=== PATIENT | female | born 1995 | race Caucasian/White ===

== ENCOUNTER 2024-05-14 12:40 | Outpatient (CLI) | payer OTHER, SELFPAY ==
--- NOTE | 2024-05-14 13:00 | CRLHL7_ITS ---
For Patients: As a result of the Century Cures Act, medical imaging exams and procedure reports are released immediately into your electronic medical record. You may view this report before your referring provider. If you have questions, please contact your health care provider. INDICATION: 2nd trimester anatomical survey. TECHNIQUE: Ultrasound OB pelvis transabdominal. Real-time robertson-scale imaging of the fetus was performed as well as color Doppler and spectral Doppler analysis of the umbilical artery. COMPARISON: None FINDINGS: Intrauterine gestation: Single. heart rate: Regular, 152 bpm. presentation: Multiple positions seen throughout the exam Placenta: Posterior, without previa. Cervix: 3.8 cm and closed Amniotic fluid: 4.3 cm deepest pocket. Biometry: Biparietal diameter: 4.6 cm, 19 weeks 6 days. Head circumference: 18.6 cm, 20 weeks 6 days. Abdominal circumference: 17 cm, 22 weeks 0 days. Femoral length: 3.4 cm, 20 weeks 5 days. EFW: 413 gm, 88 %. Gestational age by ultrasound: 20 weeks 6 days KRISTIN by ultrasound: 09/25/2024 Anatomical Survey: Wilkes views including four-chamber heart, LVOT, RVOT, 3VV, and 3VTV: Visualized. Possible ventricular septal defect Stomach: Visualized. Kidneys: The left kidney is not visualized. Bladder: Visualized. Spine: Visualized. Sacrum: Visualized. 4 extremities: Visualized. Cord insertion: Central 3V cord: Absent right umbilical artery Face: Visualized. Nose: Visualized. Lips: Visualized. Cerebellum: Visualized, measuring 2.1 cm, compatible with 20 weeks 6 days. Cisterna Magna: Visualized measuring 4.6 mm. Lateral ventricles: Visualized measuring 6 mm. IMPRESSION: 1. Single live intrauterine measuring 20 weeks 6 days by ultrasound with KRISTIN of 09/25/2024. Estimated weight is 413 grams in the 88th percentile 2. 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 Recommend referral to tertiary care high-risk OB center for further evaluation and management. Dictated by Loraine Pruitt MD @ 05/15/2024 3:45:06 PM (Electronically Signed)
== END 2024-05-14 12:41 | disposition home or self-care (01) ==
LOC: US 12:41
PROVIDERS: Visit Provider Advanced Practice Midwife
DX: Z34.92 Encounter for supervision of normal pregnancy, unspecified, second trimester (principal); Z3A.20 20 weeks gestation of pregnancy
CPT/HCPCS: 76805

== ENCOUNTER 2024-07-10 09:08 | Outpatient (CLI) | payer OTHER, SELFPAY | END 2024-07-10 09:09 | disposition home or self-care (01) | LOC: NFLDREF 07-12 19:02 | PROVIDERS: Visit Provider Advanced Practice Midwife | DX: Z34.93 Encounter for supervision of normal pregnancy, unspecified, third trimester (principal); E03.9 Hypothyroidism, unspecified; Z3A.28 28 weeks gestation of pregnancy | CPT/HCPCS: 84443; 86592; 86787; 86850 ==

== ENCOUNTER 2024-07-31 10:35 | Outpatient (CLI) | payer OTHER, SELFPAY | END 2024-07-31 10:36 | disposition home or self-care (01) | PROVIDERS: Visit Provider Advanced Practice Midwife | DX: Z34.83 Encounter for supervision of other normal pregnancy, third trimester (principal); Z67.11 Type A blood, Rh negative; Z3A.31 31 weeks gestation of pregnancy | CPT/HCPCS: J2791 ==

== ENCOUNTER 2024-08-12 13:09 | Outpatient (CLI) | payer OTHER, SELFPAY | END 2024-08-12 13:10 | disposition home or self-care (01) | LOC: US 13:09 | PROVIDERS: Visit Provider Advanced Practice Midwife | DX: Z34.93 Encounter for supervision of normal pregnancy, unspecified, third trimester (principal); Z3A.33 33 weeks gestation of pregnancy | CPT/HCPCS: 76811; 84443 ==

== ENCOUNTER 2024-09-04 12:55 | Outpatient (CLI) | payer OTHER, SELFPAY ==
--- NOTE | 2024-09-04 13:00 | CRLHL7_ITS ---
For Patients: As a result of the Century Cures Act, medical imaging exams and procedure reports are released immediately into your electronic medical record. You may view this report before your referring provider. If you have questions, please contact your health care provider. OBSTETRICAL ULTRASOUND ??? ANATOMY SURVEY INDICATION: 2VC, agenesis of left kidney. KRISTIN by LMP or US: 09/28/2024 GESTATIONAL AGE: 36 weeks 2 days TECHNIQUE: Real-time robertson-scale imaging of the fetus was performed transabdominal. FINDINGS: position: Vertex Cervix: Not Visualized Technique: Transabdominal Amniotic fluid: 3.8 cm SDP (N: greater than 2 x 1 cm) BIOPHYSICAL PROFILE Total score: /8. Gross body movements: 2. tone: 2. Respiratory activity: 2. PLACENTA: Technique: Transabdominal. PLACENTA POSITION: Posterior. DOPPLER: heart rate: `120/135 bpm. BIOMETRY: BPD: 8.5 cm. 34 w, 1 d, 7 percent. HC: 31.5 cm. 35 w, 3 d, 6 percent. AC: 34.0 cm. 38 w, 0 d, 91 percent. FL: 7.0 cm. 35 w, 5 d, 24 percent. FL/AC ratio: 20.42 percent. HC/AC ratio: 0.93. EFW: 3000 g. Weight: 6 lbs, 10 oz. age by this US: 35 w, 6 d. KRISTIN by this US: 10/03/2024. Percentile by KRISTIN: 57 percent. IMPRESSION: 1) Sonographic gestational age 35 weeks 6 days and sonographic due date of 10/03/2024. Sonographic age is 5 days behind clinical age. 2) Estimated weight 57th percentile. Abdominal circumference 91st percentile. 3) Normal biophysical profile 12/11. FÉLIX FONSECA M.D. Diagnostic Radiologist [email or web address] DW/Dictated by: Félix Fonseca MD @ 09/05/2024 5:32:00 PM (Electronically Signed)
== END 2024-09-04 12:56 | disposition home or self-care (01) ==
LOC: US 12:55
PROVIDERS: Visit Provider Midwife
DX: O26.893 Other specified pregnancy related conditions, third trimester (principal); Q27.0 Congenital absence and hypoplasia of umbilical artery; Z3A.36 36 weeks gestation of pregnancy
CPT/HCPCS: 76816; 76819; 87081; 87653

== ENCOUNTER 2024-09-11 13:52 | Outpatient (CLI) | payer OTHER, SELFPAY ==
--- NOTE | 2024-09-11 14:00 | CRLHL7_ITS ---
For Patients: As a result of the Cures Act, medical imaging exams and procedure reports are released immediately into your electronic medical record. You may view this report before your referring provider. If you have questions, please contact your health care provider. OBSTETRICAL ULTRASOUND ??? BIOPHYSICAL PROFILE, 09/11/2024 INDICATION: Two-vessel cord, agenesis of left kidney. CLINICAL HISTORY: KRISTIN by LMP: 09/28/2024 Gestational Age: 37 weeks 4 days COMPARISON: 09/04/2024, 08/12/2024, 07/21/2024, 07/08/2024. TECHNIQUE: Real-time robertson-scale transabdominal imaging of the fetus was performed. FINDINGS: Fetus: Single Cervix: Not visualized positioning: Vertex Amniotic Fluid: 4.8 cm SDP BIOPHYSICAL PROFILE: Gross body movements: 2 tone: 2 Respiratory activity: 2 Amniotic fluid SDP: 2 Total score: 8 Placenta technique: Transabdominal Placenta position: Posterior heart rate: 144 bpm IMPRESSION: Normal biophysical profile score of 8/8. FÉLIX FONSECA M.D. Diagnostic Radiologist [email or web address] Transcribed: 3:[address]/Dictated by: Fléix Fonseca MD @ 09/11/2024 2:30:00 PM (Electronically Signed)
== END 2024-09-11 13:53 | disposition home or self-care (01) ==
LOC: US 13:52
PROVIDERS: Visit Provider Midwife
DX: O09.813 Supervision of pregnancy resulting from assisted reproductive technology, third trimester (principal); O35.9XX0 Maternal care for (suspected) fetal abnormality and damage, unspecified, not applicable or unspecified; Z3A.37 37 weeks gestation of pregnancy
CPT/HCPCS: 76819

== ENCOUNTER 2024-09-17 03:15 | Inpatient (IN) | payer OTHER, SELFPAY ==
[2024-09-17] VITALS (7 sets, daily range): BP systolic 89–111; BP diastolic 58–70; PULSE 74–81; RESP 16–20; TEMP 36.6–36.8; O2SAT 97–98
--- NOTE | 2024-09-17 03:50 | P.LDBA_ITS ---
Subjective History of Present Illness Date Seen: 09/17/24 Narrative: Patient is being admitted to Labor and Delivery for spontaneous labor. She is a 29 year old at 38.3 weeks gestation. Her full history and physical was dictated by Andrew Michaels CNM on 09/11/24. Please see this for details. Specific Issues/Plans ? : Verna? Transfer at 16 weeks' gestation from [facility] and [place], [place]? H&P:? 09/11/24 by Andrew Michaels CNM? #Single Umbilical Artery 20-week level II detailed US with MFM with ECHO echo recommended, pt declines Growth with MFM at 28 and 34 weeks recommended, pt would like to do with [facility]. MFM appointment on 07/21/24 in [place]: EFW 73%. planning 34 wk growth with MFM in [facility], ordered Weekly testing (BPP per MFM) starting at 36 weeks?can be at [facility]--form completed. Recommend delivery: elective delivery considered at >39 0/7weeks. Will likely decline.? # Unilateral renal agenesis Genetics: Completed counseling 05/21/2024 Pts brother was born with unilateral renal agenesis Recommended US and genetic consult. # Possible VSD echo initially recommended with peds cardiology. Pt elected not to proceed as it was not seen on Level II or follow-up US. # Rh negative? Rhogam recommended at 28 weeks. Will await results before administering RH detected by [place]; pt notified Rhogam needed Rhogam given 07/31 Rhogam recommended pp: #? Hx of forceps delivery with first child unmedicated vaginal deliveries with 2nd and 3rd? #? established through IUI with sperm donor? #Hypothyroidism on levothyroxine 100mcg at tx TSH at NOB 2.58 2nd tri- 2.28 3rd tri- 1.54 # Varicella non-immune. Recommended vaccinating PP. #GBS Positive: Please discuss next visit OB Labs: ? Blood type: A neg, antibody screen negative. ? Hgb: 12.2 ? Platelets: 253 ? Rubella: Immune ? Varicella: not tested RPR: non-reactive ? HBsAg: non-reactive ? Hep C: negative HIV: negative ? UC:negative GC/Chlamydia: declined ? Pap (09/13/22): NIL, no HPV result ? Genetic screening: declined IMAGING: ? 1st trimester: Limited viability ultrasound, gest sac 9w5d, CRL 9w 4d, clinical age 9w 2 d, FHR noted, Viable intrauterine Anatomy US 05/15/2024: IMPRESSION: 1. Single live intrauterine measuring 20 weeks 6 days by ultrasound with KRISTIN of 09/25/2024. Estimated weight is 413 grams in the 88th percentile 2. 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 Recommend referral to tertiary care high- risk OB center for further evaluation and management. Follow-up US Level II w/ MFM: .[facility] 05/21/2024 1. SIUP. 2. Left renal agenesis with two vessel cord. No other anomalies detected. 3. EFW 46%. 4. Normal fluid. 5. Cervix appears normal. Follow up w/ MFM 07/21/2024: 1. SIUP. 2. Two vessel cord. 3. Left renal agenesis 4. No other anomalies detected. 5. EFW 73%. 6. Normal fluid. Follow up w/ MFM 08/12/2024: Titus intrauterine at 33w 2d gestational age.2. There is known left renal agenesis and single umbilical artery. Otherwise, none of the anomalies commonly detected by ultrasound were evident in the anatomic survey described above.3. Growth parameters and estimated weight were consistent with appropriate for gestational age pattern of growth.4. The amniotic fluid volume appeared normal. COVID: declined Flu: declined TDAP: Declined Rhogam: 07/31/24 Mental Health: done Hgb: 08/12/2024 11.4 GBS: OB - Problem Based A/P Additional Plan (1) Pain during labor: Status: Acute (2) 38 weeks gestation of : Status: Acute Plan Assessment:?? at 38.3 weeks gestation?? GBS positive? Patient is coping well with challenges of labor.?? Labor type: Spontaneous, Active labor? Category 1 FHR pattern.? complicated by: #Single Umbilical Artery # Unilateral renal agenesis Genetics: Completed counseling 05/21/2024 Pts brother was born with unilateral renal agenesis Recommended US and genetic consult. # Possible VSD echo initially recommended with peds cardiology. Pt elected not to proceed as it was not seen on Level II or follow-up US. # Rh negative? Rhogam given 07/31 Rhogam recommended pp: #? Hx of forceps delivery with first child unmedicated vaginal deliveries with 2nd and 3rd? #? established through IUI with sperm donor? #Hypothyroidism # Varicella non-immune. Recommended vaccinating PP. #GBS Positive Plan:?? * ?Admit to L & D? * IV access: none * Monitoring per policy: intermittent? * Candidate for analgesia of choice.? Planning unmedicated for pain management * Desires waterbirth.? Consent signed and Hep C negative * Expectant management at this time * GBS positive, pt declines treatment * Patient encouraged to reposition and ambulate to promote physiologic labor and . * Anticipate ? Delivery/Labor/Induction Plan Plan: expectant management OB Exam Physical Exam Vital signs: VSS, afebrile? General Appearance:? Calm, cooperative.? No acute distress.? Normal affect.? Psychiatric Exam: Alert and oriented, appropriate affect? HEENT: normocephalic, neck supple, full ROM? Respiratory:? Symmetrical chest wall movement.? Normal respiratory effort.? Clear to auscultation? Cardiac:? regular rate and rhythm? Abdomen: Gravid, non tender? Extremities:? normal and trace edema? Skin: warm, dry.??? Ctx:? Q 2-3 min apart.? ? ? Strong? FHTs:? Baseline: 145.? Variability: moderate.?? Accels: +.??? Decels:? -.? SVE: 7.5/100/+1 per RN? Membranes: intact? Detailed Labor and Delivery Exam Patient Gravid: Yes
--- NOTE | 2024-09-17 05:17 | W.PM.OBVAGDE ---
OB Procedure Vag Delivery Mother Details Mother Details: Alisha is a 29 year-old, 4, Para 3, admitted on 09/17/24 at 38.3 weeks gestation. : 4 Para: 4 Weeks Gestation: 38.3 Admission Date: 09/17/24 Additional Details Amniotic Membrane Status: AROM Amniotic Membrane Rupture Date: 09/17/24 Amniotic Membrane Rupture Time: 04:30 Amniotic Membrane Fluid Description: Clear Analgesia/Anesthesia Type: None Waterbirth: Yes Pitcoin: No Intrapartal Events: None Delivery augmentation: rupture of membranes Labor Onset: 22:30 Complete: 04:40 Pushin:40 Heart: heart tones during second stage were intermittently monitored FHR 145 Delivery Details Delivery Date: 09/17/24 Delivery Time: 04:52 Route of delivery: Infant Gender: Male Viability: Alive; Heart Rate Present Position at Delivery: OA Delivery Details: 29?y.o?at 38.3 weeks.? Alisha arrived to the unit with contractions that started around 2230 and continued to grow stronger. She was examined by the RN on admission and was 7.5/100/+1 with bulging bag. She was planning a waterbirth and entered the tub and labored in multiple positions. She requested a cervical exam and was 8cm with intact membranes, discussed AROM as she was asking how to help labor progress. Reviewed risks and possible benefits and she elected to have AROM at 0430, noted clear fluid. ?She then began to feel more pressure with contractions and began pushing at 0440, assumed complete with pushing. ?She pushed in a low squat position effectively.? ??Spontaneous vaginal delivery at 0452 of?a viable?male .??Delivered in vertex OA position.??Shoulders delivered easily.? Spontaneous cry noted.??Infant placed on maternal abdomen.???Nose and mouth were bulb suctioned.? Immediately with delivery there was a large gush of blood behind baby, thought at first to be meconium but then noted cord had avulsed and quickly clamped cord attached to . Unable to see or feel cord from placenta so patient was brought to the bed and then cord was seen and clamped. There was a known single umbilical artery. Pt was GBS positive declined treatment, time from AROM to delivery 22 minutes. Shoulder dystocia: no? Nuchal cord: no? Meconium stained?fluid: no? Water : yes? ? ? 8 at 1 minute and 8 at 5 minutes.? Weight is pending. ? Placenta delivered spontaneously and?complete?at 0503 with a 2 vessel?cord.?There was a portion of membranes which seemed to not have detached with the rest of the placenta so gentle steady traction to the membranes was done and then felt that portion release and delivered attached to the placenta. Membranes appeared to have all delivered attached to the placenta. ? Bleeding controlled with fundal massage.? ? Lacerations:??small 1st degree perineal laceration, not bleeding, not repaired? ? Bleeding?post delivery?was: minimal. ?The fundus was firm to palpation.? Blood loss: 550?mL.? Blood loss measurement type: QBL 50, EBL 500 in tub? ? Sponge,?lap?and needles counts are correct.? Mother and were stable after delivery.? 1 Minute Interval Total Score: 8 5 Minute Interval Total Score: 8 Additional Details Shoulder Dystocia: No Placenta Delivery Time: 05:03 Placental Delivery Description: Spontaneous Procedure Done: Global Blood Loss: 550 Laceration: Perineal - 1st Degree Blood Loss Measurement Type: QBL (50ml in drape, EBL 500 in tub) Bakri Used: No Sponge/Need Count Correct: Yes Cord Vessel Description: 2 Vessels and Avulsion Event Summary Status: Mother and infant were stable after delivery. Disposition: floor
[2024-09-17] MEDS: IBUPROFEN 600 MG TABLET PO ×3 (06:13→18:14)
[2024-09-17] MEDS: ACETAMINOPHEN 500 MG TABLET 1000 MG PO ×3 (10:43→22:57)
[2024-09-18] MEDS: IBUPROFEN 600 MG TABLET PO ×2 (04:22→10:37)
[2024-09-18 04:30] VITALS: BP 103/52; PULSE 77; RESP 20; TEMP 36.5; O2SAT 97
[2024-09-18 07:01] LABS: Hemoglobin* 11.3 gm/dL (12.0-16.0)
--- NOTE | 2024-09-18 07:32 | P.DS_ITS ---
DS: Providers Provider Date Seen: 09/18/24 Date of admission: 09/17/24 03:15 Primary care physician: Not a Local Provider Admitting Clinician: Daniel Hyde CNM Attending Physician on discharge: Jennifer PORTER Date of Discharge: 09/18/24 DS: Diagnosis Discharge Diagnosis (1) care and examination of lactating mother: Status: Acute (2) Hypothyroid: Status: Acute Exam Narrative: Exam Narrative: GENERAL APPEARANCE:? normal affect, alert, no distress MOOD:? appropriate CHEST:? clear to auscultation HEART:? regular rate and rhythm ABDOMEN:? soft, non-tender the uterine fundus is 2 cm below Umbilicus, Midline and is appropriate for the stage of recovery. PERINEUM:?deferred EXTREMITIES:? normal and no edema Const: Vital Signs, click to edit/add: Vital Signs - 24 hr 09/17/24 08:10 09/17/24 12:10 09/17/24 15:48 Temperature 98.0 F 98.2 F 98.0 F Pulse Rate [Pulse Oximeter] 76 78 78 Respiratory Rate 16 16 16 Blood Pressure [Ri ght Arm] 89/58 L 106/66 105/62 Pulse Oximetry 98 98 Oxygen Delivery Me thod Room Air Room Air Room Air 09/17/24 20:02 09/17/24 23:02 09/18/24 04:30 Temperature 97.9 F 97.9 F 97.7 F Pulse Rate [Pulse Oximeter] 74 81 77 Respiratory Rate 16 20 20 Blood Pressure [Ri ght Arm] 111/70 106/69 103/52 L Pulse Oximetry 97 97 97 Oxygen Delivery Me thod Room Air Room Air Room Air OB - DS: Summary Hospital Course Hospital Course: Alisha is a 29 y.o. G 4 P 4004 who was admitted to L & D for active labor.? She had a NVD precipitously that was complicated by cord avulsion with no concerning sequalae. The patient feels well.? The pain is well controlled with current medications.? She has no new complaints.? She is breast feeding and reports things are going well. the patient has done well.? Vitals have been stable.? She has remained afebrile.? Has a good appetite, is tolerating a general diet.? She is voiding without difficulty.? She is passing gas and has not had a bowel movement.? She is ambulating and denies any dizziness.? Has small amount of rubra lochia. She is to another female and does not need contraception.? ?? Problems: none ?? plan:? Discharge home with baby.? Follow up in 2 weeks and 6 weeks.? , may see if needed? Hgb 11.3. ? To continue 100mcg levothyroxine daily. Will check TSH at 6w PP.? Labs WNL or stable with trending? ? ? Call for signs/symptoms of preeclampsia? Peripartum Data Infant delivery method: Vaginal Laceration description: Periurethral - 1st Degree (not repaired) complications: none Gender: Male Infant Discharge Plan: Home Status at Discharge Overall status at discharge: patient is progressing back to baseline Time Spent with Patient Time attestation: Total time spent providing and/or coordinating discharge services: Time spent: Less than 30 minutes Discharge Plan Discharge Disposition: Home, Self-Care Date of Admission: 09/17/24 03:15 Attending Provider on Discharge: Kailee Cunha Primary Care Provider: Provider,Not a Local Condition: Stable Anticipated Discharge Date/Time: 09/18/24 12:00 Discharge Medications: Continued magnesium 200 mg tablet 200 mg PO QDAY Vitafol-OB+DHA 65-1-250 mg combo pack PO levothyroxine 100 mcg capsule 100 mcg PO QDAY Qty: 90 3RF Discharge Orders: Discharge Order (Routine); Ordered 09/18/24 Ordered By: Kailee Cunha Patient Education: OB Vaginal/Breast Feeding Additional Instructions: Discharge instructions were reviewed with the patient including signs and symptoms of infection and home going medications Nothing vaginally for 6 weeks: no tampons or intercourse Do not drive while taking narcotic pain medication(s) Off Work or School for 6 weeks Symptoms to report to doctor: * Bleeding that saturates more than one pad per hour * Passing clots larger than the size of a golf ball * Pain not relieved by prescribed medication * Fever above 100.4 degrees Fahrenheit * A foul vaginal odor * Difficulty in emotions, mood, and functions * Thoughts of hurting yourself and/or * Painful, reddened area in your breast * Any drainage, redness, or tenderness in your IV/epidural site * Severe headache that doesn't improve after taking medications * Changes in vision, including temporary loss of vision, blurred vision, and/or light sensitivity * Upper abdominal pain (usually under ribs on the right side) * Decrease in urination or painful, frequent urinating * Chest pain * Shortness of breath * Tenderness or pain with redness and/swelling in the calf(s) of your leg 2-week visit: discuss infant feeding concerns, review control options and screen for anxiety/depression. 6-week visit for an annual exam. consultation services are available to all mothers and babies for the first year after delivery.? To make an appointment, please call [phone]. For pain control of perineum, breast and pelvic pain, take 600 mg Ibuprofen every 6 hours as needed by mouth or 1000 mg acetaminophen (Tylenol) every 6 hours by mouth as needed. You can alternate these so you are taking something every 3 hours as needed. A heating pad can also be used for your abdomen or breasts. You may also take docusate sodium up to twice daily to soften your stools and help to prevent constipation. You may wean off of it when your stools return to normal.? Activity Level: Activity as Tolerated and No strenuous activity Discharge Diet: Regular Follow Up Appointments: [facility] [Provider Group] Forms: MyHealth Info Instructions
[2024-09-18] MEDS: DOCUSATE SODIUM 100 MG CAPSULE PO (08:13)
[2024-09-18] MEDS: ACETAMINOPHEN 500 MG TABLET 1000 MG PO (08:13)
[2024-09-18] MEDS: LEVOTHYROXINE 100 MCG TABLET PO (08:44)
[2024-09-18 11:00] VITALS: BP 114/80; PULSE 75; RESP 16; TEMP 36.6; O2SAT 98
[2024-09-19 21:31] LABS: Rapid Plasma Reagin (RPR) Non Reactive (Non Reactive)
== END 2024-09-18 11:30 | disposition home or self-care (01) | DRG 807 ==
LOC: OB OUT 03:39 → OB 09-18 07:35
PROVIDERS: Admitting Provider Advanced Practice Midwife; Visit Provider Advanced Practice Midwife
DX: O99.284 Endocrine, nutritional and metabolic diseases complicating childbirth (principal); Z37.0 Single live birth; E03.9 Hypothyroidism, unspecified; Z3A.39 39 weeks gestation of pregnancy; O99.824 Streptococcus B carrier state complicating childbirth; Z78.9 Other specified health status; O26.893 Other specified pregnancy related conditions, third trimester; Z67.11 Type A blood, Rh negative; O70.0 First degree perineal laceration during delivery; O99.891 Other specified diseases and conditions complicating pregnancy; Z86.59 Personal history of other mental and behavioral disorders; O35.EXX0 Maternal care for other (suspected) fetal abnormality and damage, fetal genitourinary anomalies, not applicable or unspecified; O35.BXX0 Maternal care for other (suspected) fetal abnormality and damage, fetal cardiac anomalies, not applicable or unspecified; O69.89X0 Labor and delivery complicated by other cord complications, not applicable or unspecified
CPT/HCPCS: 36415; 85018; 85461; 86592; G0463; A9270; J2791

== ENCOUNTER 2024-11-04 09:06 | Outpatient (CLI) | payer OTHER, SELFPAY | END 2024-11-04 09:07 | disposition home or self-care (01) | LOC: NFLDREF 09:07 | PROVIDERS: Visit Provider Midwife | DX: E03.9 Hypothyroidism, unspecified (principal) | CPT/HCPCS: 84443 ==